=== PATIENT | female | born 1995 | race Caucasian/White ===

== ENCOUNTER 2019-01-02 15:18 | Emergency (ER) | payer OTHER ==
[~2019-01-02] VITALS: Ht 160 cm; Wt 62.6 kg
[2019-01-02] MEDS ORDERED: LACTATED RINGERS 1,000 ML IV STA (16:06)
[2019-01-02 16:18] LABS: BILIRUBIN,URINE NEGATIVE (NEGATIVE); CLARITY,URINE CLEAR; COLOR,URINE YELLOW; GLUCOSE, URINE (UA) NEGATIVE (NEGATIVE); KETONES,URINE 1+ (NEGATIVE); LEUKOCYTE ESTERASE ,URINE 1+ (NEGATIVE); NITRITE,URINE NEGATIVE (NEGATIVE); PH,URINE 7 (5-9); PROTEIN,URINE 1+ (NEGATIVE); UROBILINOGEN,URINE 1 MG/DL (NORMAL)
[2019-01-02 16:23] LABS: BASOPHILS % (AUTO) 0 % (0-10); EOSINOPHILS % (AUTO) 1 % (0-10); HEMATOCRIT 36 % (35-52); HEMOGLOBIN 11.9 G/DL (11.5-16.0); LYMPHOCYTES # (AUTO) 1.4 X 10^3 (1.0-4.0); LYMPHOCYTES % (AUTO) 17 % (12-44); MEAN CORPUSCULAR HEMOGLOBIN 30 PG (25-34); MEAN CORPUSCULAR HGB CONC 33 G/DL (32-36); MEAN CORPUSCULAR VOLUME 91 FL (80-99); MEAN PLATELET VOLUME 10.5 FL (7.4-10.4); MONOCYTES # (AUTO) 1.2 X 10^3 (0.0-1.0); MONOCYTES % (AUTO) 14 % (0-12); NEUTROPHILS # (AUTO) 5.8 X 10^3 (1.8-7.8); NEUTROPHILS % (AUTO) 69 % (42-75); PLATELET COUNT 320 10^3/uL (130-400); RED CELL DISTRIBUTION WIDTH 13.2 % (10.0-14.5); WHITE BLOOD COUNT 8.4 10^3/uL (4.3-11.0)
--- NOTE | 2019-01-02 16:28 | ED GI ---
General Chief Complaint: Abdominal/GI Problems Stated Complaint: 8-9 WEEKS PREG,N/V Nursing Triage Note: IS APX 9WEEKS PREG HAS BEEN SICK WITH NAUSEA AND VOMITING. SAW LAST WEEK. Sepsis Screen: No Definite Risk Source of Information: Patient Exam Limitations: No Limitations (MARIA E ELLIS) History of Present Illness Date Seen by Provider: Jan 02, 2019 Time Seen by Provider: 16:00 Initial Comments Pt presents with vomiting and worry she might be dehydrated. She is 8.5 weeks and been vomiting 1-3 times per day for about 3 weeks. She has been eating mainly saltine crackers and drinking some water. She also states she is constipated for almost a week and has been taking 1 dose a day with no relief. She was given Zofran for the vomiting, but it has not really helped. She reports epigastric pain as well that is a burning/dull in character for which she got an US of the gallbladder this morning. She reports feeling exhausted today after working and feels it might be dehydrated. Timing/Duration: Other (3 weeks) Severity/Quality: Mild, Burning, Dull Location: Epigastric Radiation: No Radiation Activities at Onset: None Associated Symptoms: No Fever/Chills; Headache (MARIA E ELLIS) Timing/Duration: Other (3 weeks) Severity/Quality: Mild, Burning Location: Epigastric Radiation: No Radiation Activities at Onset: None Associated Symptoms: No Fever/Chills; Headache, Nausea/Vomiting; No Shortness of Air, No Weakness (BURT JIMENEZ MD) Allergies and Home Medications Allergies Coded Allergies: No Known Drug Allergies (Unverified , 01/02/19) Patient Home Medication List Home Medication List Reviewed: Yes (BURT JIMENEZ MD) Review of Systems Review of Systems Constitutional: no symptoms reported EENTM: No Symptoms Reported Respiratory: No Symptoms Reported Cardiovascular: No Symptoms Reported Gastrointestinal: Abdominal Pain, Constipated; Denies Diarrhea; Nausea, Vomiting Genitourinary: No Symptoms Reported Musculoskeletal: no symptoms reported Skin: no symptoms reported Psychiatric/Neurological: No Symptoms Reported (MARIA E ELLIS) Gastrointestinal: Nausea, Vomiting Genitourinary: Denies Flank Pain, Denies Pain Musculoskeletal: no symptoms reported (BURT JIMENEZ MD) All Other Systems Reviewed Negative Unless Noted: Yes (BURT JIMENEZ MD) Past Zrmuonj-[id number]-Pqmlok Hx Past Med/Social Hx: Reviewed Nursing Past Med/Soc Hx (BURT JIMENEZ MD) Patient Social History Alcohol Use: Denies Use Recreational Drug Use: No Smoking Status: Never a Smoker 2nd Hand Smoke Exposure: No Recent Foreign Travel: No Contact w/Someone Who Travel: No Recent Infectious Disease Expo: No Recent Hopitalizations: No Physical Abuse: No Sexual Abuse: No Mistreated: No Fear: No (MARIA E ELLIS) Seasonal Allergies Seasonal Allergies: No (MARIA E ELLIS) Past Medical History Surgeries: Yes Tonsillectomy Respiratory: No Cardiac: No Neurological: No : Yes Expected Date of Delivery: Aug 09, 2019 Last Menstrual Period: Oct 27, 2018 Hx : 1 Hx Para: 0 Genitourinary: No Gastrointestinal: No Musculoskeletal: No Endocrine: No HEENT: No Cancer: No Psychosocial: No Integumentary: No (MARIA E ELLIS) Family Medical History Reviewed Nursing Family Hx (BURT JIMENEZ MD) No Pertinent Family Hx (BURT JIMENEZ MD) Physical Exam Vital Signs Vital Signs - First Documented 01/02/19 15:30 Temp 98.4 Pulse 89 Resp 18 B/P (MAP) 111/63 (79) Pulse Ox 98 O2 Delivery Room Air (BURT JIMENEZ MD) Vital Signs Capillary Refill : Less Than 3 Seconds (MARIA E ELLIS) Height/Weight/BMI Height: 5'3.00" Weight: 138lbs. oz. 62.837230wg; BMI Method:Stated General Appearance: WD/WN, no apparent distress HEENT: PERRL/EOMI, normal ENT inspection, TMs normal, pharynx normal Neck: non-tender, full range of motion Respiratory: chest non-tender, lungs clear, normal breath sounds, no respiratory distress, no accessory muscle use Cardiovascular: regular rate, rhythm, no edema, no gallop, no JVD, no murmur Peripheral Pulses: 2+ Dorsalis Pedis (R), 2+ Left Dors-Pedis (L), 2+ Radial Pulses (R), 2+ Radial Pulses (L) Gastrointestinal: normal bowel sounds, soft, no organomegaly, no pulsatile mass Extremities: normal range of motion, no pedal edema, no calf tenderness Neurologic/Psychiatric: no motor/sensory deficits, alert, normal mood/affect, oriented x 3 Skin: normal color, warm/dry (CALEB,MARIA E SANZ STUDJOLENE) General Appearance: WD/WN, no apparent distress Respiratory: lungs clear, normal breath sounds Cardiovascular: regular rate, rhythm, no murmur Gastrointestinal: normal bowel sounds, non tender, soft Neurologic/Psychiatric: alert Skin: normal color, warm/dry (BURT JIMENEZ MD) Progress/Results/Core Measures Results/Orders Lab Results Laboratory Tests Test 01/02/19 15:40 01/02/19 16:10 Range/Units Urine Color YELLOW Urine Clarity CLEAR Urine pH 7 5-9 Urine Specific [place] 1.010 L 1.016-1.022 Urine Protein 1+ H NEGATIVE Urine Glucose (UA) NEGATIVE NEGATIVE Urine Ketones 1+ H NEGATIVE Urine Nitrite NEGATIVE NEGATIVE Urine Bilirubin NEGATIVE NEGATIVE Urine Urobilinogen 1 NORMAL MG/DL Urine Leukocyte Esterase 1+ H NEGATIVE Urine RBC (Auto) NEGATIVE NEGATIVE Urine RBC NONE /HPF Urine WBC 5-10 H /HPF Urine Squamous Epithelial Cells RARE /HPF Urine Crystals NONE /LPF Urine Bacteria MODERATE H /HPF Urine Casts NONE /LPF Urine Mucus MODERATE H /LPF Urine Culture Indicated YES White Blood Count 8.4 4.3-11.0 10^3/uL Red Blood Count 4.00 L 4.35-5.85 10^6/uL Hemoglobin 11.9 11.5-16.0 G/DL Hematocrit 36 35-52 % Mean Corpuscular Volume 91 80-99 FL Mean Corpuscular Hemoglobin 30 25-34 PG Mean Corpuscular Hemoglobin Concent 33 32-36 G/DL Red Cell Distribution Width 13.2 10.0-14.5 % Platelet Count 320 130-400 10^3/uL Mean Platelet Volume 10.5 H 7.4-10.4 FL Neutrophils (%) (Auto) 69 42-75 % Lymphocytes (%) (Auto) 17 12-44 % Monocytes (%) (Auto) 14 H 0-12 % Eosinophils (%) (Auto) 1 0-10 % Basophils (%) (Auto) 0 0-10 % Neutrophils # (Auto) 5.8 1.8-7.8 X 10^3 Lymphocytes # (Auto) 1.4 1.0-4.0 X 10^3 Monocytes # (Auto) 1.2 H 0.0-1.0 X 10^3 Eosinophils # (Auto) 0.0 0.0-0.3 10^3/uL Basophils # (Auto) 0.0 0.0-0.1 10^3/uL Sodium Level 135 135-145 MMOL/L Potassium Level 3.9 3.6-5.0 MMOL/L Chloride Level 103 98-107 MMOL/L Carbon Dioxide Level 25 21-32 MMOL/L Anion Gap 7 5-14 MMOL/L Blood Urea Nitrogen 8 7-18 MG/DL Creatinine 0.67 0.60-1.30 MG/DL Estimat Glomerular Filtration Rate > 60 BUN/Creatinine Ratio 12 Glucose Level 102 70-105 MG/DL Calcium Level 9.1 8.5-10.1 MG/DL Corrected Calcium 8.9 8.5-10.1 MG/DL Total Bilirubin 0.3 0.1-1.0 MG/DL Aspartate Amino Transf (AST/SGOT) 14 5-34 U/L Alanine Aminotransferase (ALT/SGPT) 13 0-55 U/L Alkaline Phosphatase 51 40-136 U/L Total Protein 6.9 6.4-8.2 GM/DL Albumin 4.2 3.2-4.5 GM/DL (BURT JIMENEZ MD) My Orders Orders - BURT JIMENEZ MD Cbc With Automated Diff (01/02/19 16:06) Comprehensive Metabolic Panel (01/02/19 16:06) Ua Culture If Indicated (01/02/19 16:06) Lactated Ringers (Lr 1000 Ml Iv Solution (01/02/19 16:06) Ed Iv/Invasive Line Start (01/02/19 16:06) Urine Culture (01/02/19 15:40) Lactated Ringers (Lr 1000 Ml Iv Solution (01/02/19 17:30) (BURT JIMENEZ MD) Vital Signs/I&O 01/02/19 15:30 Temp 98.4 Pulse 89 Resp 18 B/P (MAP) 111/63 (79) Pulse Ox 98 O2 Delivery Room Air (BURT JIMENEZ MD) Blood Pressure Mean: 79 Progress Progress Note : Time: 16:10 Progress Note Pt seen by me. She reports vomiting for 3 weeks 1-3 times per day. She has taken zofran that does not help and is worried about being dehydrated. I spoke with Dr Jimenez about the patient and he ordered 1L of LR, CBC, CMP, UA. (MARIA E ELLIS) Progress Note : Progress Note I have seen and evaluated the patient and agree with above except as indicated. I have directed the plan of care. Patient is here with intermittent nausea over the last 3 weeks. She is approximately 8 weeks . Seen today by her provider and had gallbladder ultrasound done. I have reviewed this and it does not show any significant findings. We will check labs, UA and initiate 1 L of LR for hydration. Monitor patient. 1720: Doing better with reduced headache. We will go ahead and give another liter of fluid given 1+ ketones in the urine and then discharge. This was discussed with patient and family who agree. Overall she is feeling better though. She does have urinary tract infection and we will treat this outpatient. Discharged home with return precautions. Patient and family verbalized understanding instructions and agreement with plan. (BURT JIMENEZ MD) Departure Impression Primary Impression: Vomiting during Additional Impression: Urinary tract infection Qualified Codes: N30.00 - Acute cystitis without hematuria Disposition: HOME, SELF-CARE Condition: Improved Departure-Patient Inst. Decision time for Depature: 17:29 (BURT JIMENEZ MD) Referrals: NO,LOCAL PHYSICIAN (PCP/Family) Primary Care Physician Patient Instructions: Urinary Tract Infection, Adult (DC), Nausea and Vomiting of (DC), Morning Sickness (DC), Urinary Tract Infections in Adults Add. Discharge Instructions: All discharge instructions reviewed with patient and/or family. Voiced understanding. Continue medications as previously prescribed. Take small sips frequently and you may try different fluids to ensure that he stay hydrated. You may eat light crackers or ptosis and stick with light meals until you get through the nausea and vomiting portion of your . Follow up with your DrBrenda in a few days for recheck. Return for worse pain, fever, vomiting, weakness, breathing problem s or other concerns as needed. Scripts Cephalexin (Cephalexin) 500 Mg Tablet 500 MG PO BID, #10 TAB 0 Refills Prov: BURT JIMENEZ MD 01/02/19 MARIA E ELLIS Jan 02, 2019 16:28 UBRT JIMENEZ MD Jan 02, 2019 17:31
[2019-01-02 16:43] LABS: ALANINE AMINOTRANSFERASE 13 U/L (0-55); ALBUMIN 4.2 GM/DL (3.2-4.5); ALKALINE PHOSPHATASE 51 U/L (40-136); BILIRUBIN,TOTAL 0.3 MG/DL (0.1-1.0); BUN/CREATININE RATIO 12; CALCIUM 9.1 MG/DL (8.5-10.1); CARBON DIOXIDE 25 MMOL/L (21-32); CHLORIDE 103 MMOL/L (98-107); CREATININE SERUM 0.67 MG/DL (0.60-1.30); GFR ESTIMATED > 60; GLUCOSE 102 MG/DL (70-105); POTASSIUM 3.9 MMOL/L (3.6-5.0); SODIUM 135 MMOL/L (135-145); TOTAL PROTEIN 6.9 GM/DL (6.4-8.2)
[2019-01-02 16:44] LABS: BACTERIA,URINE MODERATE /HPF; SQUAMOUS EPITHELIAL CELL,UR RARE /HPF
[2019-01-02] MEDS ORDERED: LACTATED RINGERS 1,000 ML IV SCH (17:30)
[2019-01-02] MEDS ORDERED: CEPH500T PO (17:31)
[2019-01-02 18:04] VITALS: BP 110/66
== END 2019-01-02 18:04 | disposition home or self-care (01) ==
LOC: EDUNIT# 15:18 → ER 15:20
DX: O21.0 Mild hyperemesis gravidarum (principal); O23.41 Unspecified infection of urinary tract in pregnancy, first trimester; Z3A.08 8 weeks gestation of pregnancy; Z90.89 Acquired absence of other organs
CPT/HCPCS: 36415; 80053; 81000; 85025; 87088

== ENCOUNTER → 2019-01-02 | Outpatient (CLI) | payer OTHER ==
[~2019-01-02] MED LIST: CEPH500T PO
--- NOTE | 2019-01-02 09:40 | Diagnostic Imaging Report ---
PROCEDURE: US Gallbladder. TECHNIQUE: Multiple Real-time grayscale images were obtained over the right upper quadrant in various projections. INDICATION: Abdominal pain. COMPARISON: There are no prior studies available for comparison. FINDINGS: There is no evidence for cholelithiasis or acute cholecystitis and the common bile duct is not dilated. The liver does not appear to be enlarged. There is no focal mass involving the liver. Spectral color flow imaging of the portal vein shows that the vein is patent. The right kidney is within normal limits. The pancreas and aorta are partially obscured by bowel gas but show no definite abnormality. IMPRESSION: 1. There is no acute abnormality of the right upper quadrant. 2. If clinical concern regarding an acute abnormality of the gallbladder persists and further evaluation is desired, then a Nuclear Medicine hepatobiliary scan would be recommended. Dictated by: Dictated on workstation # [id number]
== END ==
LOC: RAD 06:58
PROVIDERS: ATTEND Obstetrics & Gynecology
DX: R10.10 Upper abdominal pain, unspecified (principal)
CPT/HCPCS: 76705

== ENCOUNTER 2019-02-21 14:26 | Observation (INO) | payer OTHER ==
[~2019-02-21] VITALS: Ht 162.5 cm; Wt 63.3 kg
--- NOTE | 2019-02-21 14:10 | NUR ---
MARTIR RAMOS presented to unit via AMBULATION from HOME, accompanied by S/O, with c/o HYPER EMESIS. MARTIR RAMOS weighed, gowned, voided, and to bed. EFHM and TOCO applied, VS taken. MARTIR RAMOS oriented to bed controls, call light, TV, heat, and A/C controls. Addendum: 02/21/19 at 1433 by CECILY PITTS RN TOCO AND EMF NOT APPLIED OR APPLICABLE AT THIS GESTATION.
[2019-02-21 14:15] VITALS: BP 122/74
[2019-02-21] MEDS ORDERED: PROMETHAZINE 25 MG (PHENERGAN) SUPP PR NR (14:30)
--- NOTE | 2019-02-21 14:30 | NUR ---
DR CLAUDIO NOTIFIED OF PATIENT ARRIVAL AND C/O. NEW ORDERS RECEIVED.
[2019-02-21] MEDS: D5 LR IV SOLUTION 1,000 ML IV SCH ×5 (14:45→23:00)
[2019-02-21 14:53] LABS: BASOPHILS % (AUTO) 0 % (0-10); EOSINOPHILS % (AUTO) 0 % (0-10); HEMATOCRIT 35 % (35-52); HEMOGLOBIN 11.5 G/DL (11.5-16.0); LYMPHOCYTES # (AUTO) 1.2 X 10^3 (1.0-4.0); LYMPHOCYTES % (AUTO) 16 % (12-44); MEAN CORPUSCULAR HEMOGLOBIN 30 PG (25-34); MEAN CORPUSCULAR HGB CONC 33 G/DL (32-36); MEAN CORPUSCULAR VOLUME 91 FL (80-99); MEAN PLATELET VOLUME 10.3 FL (7.4-10.4); MONOCYTES % (AUTO) 12 % (0-12); NEUTROPHILS # (AUTO) 5.7 X 10^3 (1.8-7.8); NEUTROPHILS % (AUTO) 72 % (42-75); PLATELET COUNT 290 10^3/uL (130-400); RED CELL DISTRIBUTION WIDTH 13.6 % (10.0-14.5); WHITE BLOOD COUNT 7.9 10^3/uL (4.3-11.0)
[2019-02-21 15:11] LABS: ALANINE AMINOTRANSFERASE 25 U/L (0-55); ALKALINE PHOSPHATASE 84 U/L (40-136); BILIRUBIN,TOTAL 0.6 MG/DL (0.1-1.0); BUN/CREATININE RATIO 10; CALCIUM 9.3 MG/DL (8.5-10.1); CARBON DIOXIDE 23 MMOL/L (21-32); CHLORIDE 102 MMOL/L (98-107); GFR ESTIMATED > 60; GLUCOSE 76 MG/DL (70-105); SODIUM 136 MMOL/L (135-145); TOTAL PROTEIN 6.8 GM/DL (6.4-8.2)
--- NOTE | 2019-02-21 16:40 | NUR ---
FIRST BAG IV FLUIDS COMPLETED. ASSISTED UP TO BATHROOM, ATTEMPTING TO VOID FOR ORDERED UA. SPONTANEOUS VOID URINE SENT TO LAB.
[2019-02-21 16:52] LABS: BILIRUBIN,URINE NEGATIVE (NEGATIVE); CLARITY,URINE CLEAR; COLOR,URINE YELLOW; GLUCOSE, URINE (UA) 3+ (NEGATIVE); KETONES,URINE 4+ (NEGATIVE); LEUKOCYTE ESTERASE ,URINE NEGATIVE (NEGATIVE); NITRITE,URINE NEGATIVE (NEGATIVE); PH,URINE 7 (5-9); PROTEIN,URINE 1+ (NEGATIVE)
[2019-02-21 17:05] LABS: BACTERIA,URINE FEW /HPF
--- NOTE | 2019-02-21 17:45 | NUR ---
FHT 160's. left lower quadrant.
[2019-02-21 21:00] VITALS: BP 109/68
--- NOTE | 2019-02-21 21:49 | NUR ---
Doppler 160's and pt states that she was able to eat part of the sandwich and is feeling better.
[2019-02-21 23:09] VITALS: BP 101/55
--- NOTE | 2019-02-21 23:10 | NUR ---
Pt resting in bed, pt states she is feeling better but wishes to stay tonight and see physician in am. VS obtained and IV evaluation complete.
[2019-02-22] MEDS: D5 LR IV SOLUTION 1,000 ML IV SCH (03:09)
[2019-02-22 03:11] VITALS: BP 115/75
--- NOTE | 2019-02-22 06:13 | History & Physical ---
History and Physical Date Seen by Provider: Feb 22, 2019 Time Seen by Provider: 06:13 This patient is a 23-year-old 1 white female currently near 10 weeks gestation admitted for hyperemesis. She tried several anti-medics with no effect. She is at a point where she could not keep anything down. She was feeling dizzy and lightheaded. She was admitted and hydrated and given antiemetics to good effect. She denies rupture membranes or bleeding. Allergies are none Medications are directly to/Zofran/ vitamins Medical social and surgical histories are per the H&P from my office HEENT exam is normal Neck is supple no lymphadenopathy no thyromegaly Abdomen soft nontender nondistended Extreme show clubbing cyanosis. Homans sign. Pelvic exam is deferred Laboratory Tests Test 02/21/19 14:49 02/21/19 16:40 Range/Units White Blood Count 7.9 4.3-11.0 10^3/uL Red Blood Count 3.78 L 4.35-5.85 10^6/uL Hemoglobin 11.5 11.5-16.0 G/DL Hematocrit 35 35-52 % Mean Corpuscular Volume 91 80-99 FL Mean Corpuscular Hemoglobin 30 25-34 PG Mean Corpuscular Hemoglobin Concent 33 32-36 G/DL Red Cell Distribution Width 13.6 10.0-14.5 % Platelet Count 290 130-400 10^3/uL Mean Platelet Volume 10.3 7.4-10.4 FL Neutrophils (%) (Auto) 72 42-75 % Lymphocytes (%) (Auto) 16 12-44 % Monocytes (%) (Auto) 12 0-12 % Eosinophils (%) (Auto) 0 0-10 % Basophils (%) (Auto) 0 0-10 % Neutrophils # (Auto) 5.7 1.8-7.8 X 10^3 Lymphocytes # (Auto) 1.2 1.0-4.0 X 10^3 Monocytes # (Auto) 1.0 0.0-1.0 X 10^3 Eosinophils # (Auto) 0.0 0.0-0.3 10^3/uL Basophils # (Auto) 0.0 0.0-0.1 10^3/uL Sodium Level 136 135-145 MMOL/L Potassium Level 4.0 3.6-5.0 MMOL/L Chloride Level 102 98-107 MMOL/L Carbon Dioxide Level 23 21-32 MMOL/L Anion Gap 11 5-14 MMOL/L Blood Urea Nitrogen 6 L 7-18 MG/DL Creatinine 0.60 0.60-1.30 MG/DL Estimat Glomerular Filtration Rate > 60 BUN/Creatinine Ratio 10 Glucose Level 76 70-105 MG/DL Calcium Level 9.3 8.5-10.1 MG/DL Corrected Calcium 9.3 8.5-10.1 MG/DL Total Bilirubin 0.6 0.1-1.0 MG/DL Aspartate Amino Transf (AST/SGOT) 23 5-34 U/L Alanine Aminotransferase (ALT/SGPT) 25 0-55 U/L Alkaline Phosphatase 84 40-136 U/L Total Protein 6.8 6.4-8.2 GM/DL Albumin 4.0 3.2-4.5 GM/DL Urine Color YELLOW Urine Clarity CLEAR Urine pH 7 5-9 Urine Specific [place] 1.015 L 1.016-1.022 Urine Protein 1+ H NEGATIVE Urine Glucose (UA) 3+ H NEGATIVE Urine Ketones 4+ H NEGATIVE Urine Nitrite NEGATIVE NEGATIVE Urine Bilirubin NEGATIVE NEGATIVE Urine Urobilinogen NORMAL NORMAL MG/DL Urine Leukocyte Esterase NEGATIVE NEGATIVE Urine RBC (Auto) NEGATIVE NEGATIVE Urine RBC NONE /HPF Urine WBC NONE /HPF Urine Squamous Epithelial Cells 5-10 /HPF Urine Crystals NONE /LPF Urine Bacteria FEW H /HPF Urine Casts NONE /LPF Urine Mucus NEGATIVE /LPF Urine Culture Indicated NO Patient is mildly dehydrated and was producing ketones consistent with starvation Assessment and plan 10 week gestation with hyperemesis. Patient is markedly improved now with IV hydration and anti-medics. Plan is for discharge home with follow-up in clinic Hyperemesis gravidarum at 10 weeks gestation Allergies and Home Medications Allergies Coded Allergies: No Known Drug Allergies (Unverified , 01/02/19) Home Medications Cephalexin 500 Mg Tablet, 500 MG PO BID Prescribed by: BURT JIMENEZ on 01/02/19 1734 Patient Home Medication List Home Medication List Reviewed: Yes DELIA CLAUDIO MD Feb 22, 2019 06:13
[2019-02-22] MEDS ORDERED: PROM25TA14 PO (06:15)
--- NOTE | 2019-02-22 06:16 | Discharge Instructions ---
Discharge Instructions Reconcile Patient Problems Problems Reviewed?: Yes Discharge Medications New, Converted or Re-Newed RX: Call to Patients Pharmacy Patient Instructions Return to The Hospital For: As directed Activity & Diet Discharge Diet: No Restrictions Activity as Tolerated: Yes Orders-Post D/C & Referrals Return to clinic as scheduled for OB follow-up Return to clinic for persistent nausea vomiting Please call in rx to patient pharmacy DELIA CLAUDIO MD Feb 22, 2019 06:15
[2019-02-22 08:05] VITALS: BP 111/69
--- NOTE | 2019-02-22 08:10 | NUR ---
OUT OF WS VIA AMBULATION WITH S/O AT SIDE D/C INSTRUCTIONS IN HAND. HOME TO SELF CARE VIA PRIVATE VEHICLE. Addendum: 02/22/19 at 0902 by CECILY PITTS RN OFF FLOOR AT 0815
== END 2019-02-22 08:10 | disposition home or self-care (01) ==
LOC: WSo 14:26 → LDRP 14:27
PROVIDERS: ADMIT Obstetrics & Gynecology; ATTEND Obstetrics & Gynecology
DX: O21.1 Hyperemesis gravidarum with metabolic disturbance (principal); Z88.1 Allergy status to other antibiotic agents
CPT/HCPCS: 36415; 80053; 81000; 85025; 96360; 96361; 99211; G0378

== ENCOUNTER 2019-07-11 20:58 | Observation (INO) | payer OTHER ==
[~2019-07-11] VITALS: Ht 160 cm; Wt 78.3 kg
[~2019-07-11 20:58] MED LIST changes: +PROM25TA14 PO
[2019-07-11 21:05] VITALS: BP 0/0
--- NOTE | 2019-07-11 21:05 | NUR ---
MARTIR RAMOS presented to unit via ambulatory from ED, accompanied by so and mother , with c/o ABDOMINAL TRAUMA. MARTIR RAMOS weighed, gowned, voided, and to bed. EFHM and TOCO applied, VS taken. MARTIR RAMOS oriented to bed controls, call light, TV, heat, and A/C controls. ASSESMSENTS TO FOLLOW.
[2019-07-11 22:00] VITALS: BP 142/87
[2019-07-12 06:00] VITALS: BP 128/84
[2019-07-12 07:30] VITALS: BP 130/84
--- NOTE | 2019-07-12 07:40 | NUR ---
Dr Billingsley here. No new orders rec'd
--- NOTE | 2019-07-12 07:55 | History & Physical ---
History and Physical Date Seen by Provider: Jul 12, 2019 Time Seen by Provider: 07:51 This patient is a 23-year-old 1 white female with a due date of August 09, 2019 presented at 36 and 5/7 weeks gestation last evening after trauma to her abdomen from a large dog jumping on her. During the initial period of observation she began to contract with some regularity and some frequency and intensity. Decision made to continue monitoring for 24 hours due to increased risk for placental abruption secondary to the trauma. Patient's is complicated by her gestational diabetes. A recent GBS culture was negative. Patient denies rupture membranes or bleeding. She is feeling her contractions that are somewhat irregular but happening as frequently as every 1-8 minutes. Patient has demonstrated some cervical change dilating now to 2 cm from exam 1 cm. Allergies are to sulfa which causes hives Medications are vitamins Medical social and surgical histories are per the antepartum record HEENT exam is normal Neck is supple with no lymphadenopathy Abdomen is gravid soft nontender nondistended Extremities show no clubbing cyanosis. There is no Homans sign. Pelvic exam per the admitting nurse showed a cervix 2 cm dilated balance of the exam is record monitor shows contractions every 1-8 minutes lasting over 60 seconds. monitor shows a normal and reassuring heart rate pattern with no D cells Assessment and plan 36 and now 6/7 weeks' gestation with possible labor but also increased risk for placental abruption secondary to trauma to the abdomen. Plan is to continue surveillance for 24 hours past the spermatic event which was approximately 8 p.m. last evening. The patient doesn't make progress and demonstrates labor we will allow her to labor and deliver. labor Allergies and Home Medications Allergies Coded Allergies: Sulfa (Sulfonamide Antibiotics) (Verified Allergy, Unknown, 07/11/19) Home Medications Promethazine HCl 25 Mg Tablet, 25 MG PO Q6H PRN for NAUSEA/VOMITING Prescribed by: DELIA AGUILAR on 02/22/19 0615 Patient Home Medication List Home Medication List Reviewed: Yes DELIA CLAUDIO MD Jul 12, 2019 07:55
[2019-07-12 10:15] VITALS: BP 127/72
--- NOTE | 2019-07-12 15:30 | NUR ---
Dr Billingsley here, updated on pt status. Continue with current plan to D/C at 24hrs.
[2019-07-12 16:00] VITALS: BP 122/73
--- NOTE | 2019-07-12 19:10 | NUR ---
REPORT RECEIVED AND CARES RESUMED BY THIS NURSE.
[2019-07-12 20:20] VITALS: BP 120/68
--- NOTE | 2019-07-12 20:25 | NUR ---
DR CLAUDIO CALLED WITH REPORT OF SVE AND CONDITION. ORDER TO DISCHARGE TO HOME RECEIVED.
--- NOTE | 2019-07-12 20:28 | NUR ---
EFM D/C'D AND PT ALLOWED TO DRESS.
--- NOTE | 2019-07-12 20:35 | NUR ---
DISCHARGE INSTRUCTIONS GIVEN. PT VERBALIZES UNDERSTANDING AND SIGNATURE OBTAINED. QUESTIONS ANSWERED.
--- NOTE | 2019-07-12 20:45 | NUR ---
PT AMB OFF UNIT IN STABLE CONDITION. PT ACCOMPANIED BY MOM.
--- OUTSIDE RECORDS SUMMARY | 2019-07-16 17:36 | XMS REPORT | Continuity of Care Document ---
Author Organization Unknown Address Unknown Phone Unavailable Allergies Active Description Code Type Severity Reaction Onset Reported/Identified Relationship to Patient Clinical Status Yes No Known Drug Allergies [id number] Drug Allergy Unknown N/A 01/02/2019 Yes Sulfa (Sulfonamide Antibiotics) [id number] Drug Allergy Unknown N/A 020 Medications There is no data. 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 01/02/2019 BURT JIMENEZ MD Ot O23.41 UNSP INFCT OF URINARY TRACT IN 01/02/2019 BURT JIMENEZ MD Ot Z3A.08 8 WEEKS GESTATION OF 01/02/2019 BURT JIMENEZ MD Ot Z90.89 ACQUIRED ABSENCE OF OTHER ORGANS 01/04/2019 BURT JIMENEZ MD Ot O21.0 MILD HYPEREMESIS GRAVIDARUM 01/04/2019 BURT JIMENEZ MD Ot O23.41 UNSP INFCT OF URINARY TRACT IN 01/04/2019 BURT JIMENEZ MD Ot Z3A.08 8 WEEKS GESTATION OF 01/04/2019 BURT JIMENEZ MD Ot Z90.89 ACQUIRED ABSENCE OF OTHER ORGANS 01/24/2019 DELIA CLAUDIO MD Ot R10.10 UPPER ABDOMINAL PAIN, UNSPECIFIED 02/22/2019 DELIA CLAUDIO MD Ot O21.1 HYPEREMESIS GRAVIDARUM WITH METABOLIC DI 02/22/2019 DELIA CLAUDIO MD Ot Z88.1 ALLERGY STATUS TO OTHER ANTIBIOTIC AGENT 02/22/2019 DELIA CLAUDIO MD Ot O21.1 HYPEREMESIS GRAVIDARUM WITH METABOLIC DI 02/22/2019 DELIA CLAUDIO MD, Ot Z88.1 ALLERGY STATUS TO OTHER ANTIBIOTIC AGENT 07/11/2019 DELIA CLAUDIO MD Ot R10.10 UPPER ABDOMINAL PAIN, UNSPECIFIED 07/12/2019 DELIA CLAUDIO MD Ot O26.893 OTH RELATED CONDITIONS, THIRD 07/12/2019 DELIA CLAUDIO MD, Ot S39.91XA UNSPECIFIED INJURY OF ABDOMEN, INITIAL E 07/12/2019 DELIA CLAUDIO MD, Ot Z3A.36 36 WEEKS GESTATION OF 07/12/2019 DELIA CLAUDIO MD, Ot Z79.899 OTHER CUSTODIAL (CURRENT) DRUG THERAPY 07/12/2019 DELIA CLAUDIO MD, Ot Z88.2 ALLERGY STATUS TO SULFONAMIDES STATUS 07/13/2019 DELIA CLAUDIO MD, Ot R10.10 UPPER ABDOMINAL PAIN, UNSPECIFIED Procedures There is no data. Results Test Result Range Complete urinalysis with reflex to cultu re - 01/02/19 15:40 Urine color determination YELLOW NRG Urine clarity determination CLEAR NR G Urine pH measurement by test strip 7 5-9 Specific gravity of urine by test strip 1.010 1.016-1.022 Urine protein assay by test strip, semi-quantitative 1+ NEGATIVE Urine glucose detection by automated test strip NE GATIVE NEGATIVE Erythrocytes detection in urine sediment by light micr oscopy NEGATIVE NEGATIVE Urine ketones detection by automated test strip 1+ NEGATIVE Urine nitrite detection by test strip NEGATIVE NEGATIVE Urine total bilirubin detection by test strip NEGA TIVE NEGATIVE Urine urobilinogen measurement by automated test strip (mass/volume) 1 mg/dL NORMAL Urine leukocyte esterase detection by dipstick 1+ NEGATIVE Automated urine sediment erythrocyte cou nt by microscopy (number/high power field) NONE NRG Automated urine sediment leukocyte count by microscopy (number/high power field) [HPF] NRG Bacteria detection in urine sediment by light microsco py MODERATE NRG Squamous epithelial cells detection in u rine sediment by light microscopy RARE NRG Crystals detection in urine sediment by light microsco py NONE NRG Casts detection in urine sediment by light microscopy NONE NRG Mucus detection in urine sediment by light microscopy MODERATE NRG Complete urinalysis with reflex to culture YES NRG Bacterial urine culture - 01/02/19 15:40 Bacterial urine culture NG NRG Complete blood count (CBC) with automate d white blood cell (WBC) differential - 01/02/19 16:10 Blood leukocytes automated count (number/volume) 8.4 10*3/uL 4.3-11.0 Blood erythrocytes automated count (number/volume) 4.00 10*6/uL 4.35-5.85 Venous blood hemoglobin measurement (mass/volume) 11.9 g/dL 11.5-16.0 Blood hematocrit (volume fraction) 36 % 35-52 Automated erythrocyte mean corpuscular volume 91 [ foz_us] 80-99 Automated erythrocyte mean corpuscular h emoglobin (mass per erythrocyte) 30 pg 25-34 Automated erythrocyte mean corpuscular h emoglobin concentration measurement (mass/volume) 33 g/dL 32-36 Automated erythrocyte distribution width ratio 13. 2 % 10.0- 14.5 Automated blood platelet count (count/volume) 320 10*3/uL 130-400 Automated blood platelet mean volume measurement 10.5 [foz_us] 7.4-10.4 Automated blood neutrophils/100 leukocytes 69 % 42-75 Automated blood lymphocytes/100 leukocytes 17 % 12-44 Blood monocytes/100 leukocytes 14 % 0-12 Automated blood eosinophils/100 leukocytes 1 % 0-10 Automated blood basophils/100 leukocytes 0 % 0-10 Blood neutrophils automated count (number/volume) 5.8 10*3 1.8-7.8 Blood lymphocytes automated count (number/volume) 1.4 10*3 1.0-4.0 Blood monocytes automated count (number/volume) 1. 2 10*3 0.0-1.0 Automated eosinophil count 0.0 10*3/uL 0 .0-0.3 Automated blood basophil count (count/volume) 0.0 10*3/uL 0.0-0.1 Comprehensive metabolic panel - 01/02/19 16:10 Serum or plasma sodium measurement (moles/volume) 135 mmol/L 135-145 Serum or plasma potassium measurement (moles/volume) 3.9 mmol/L 3.6-5.0 Serum or plasma chloride measurement (moles/volume) 103 mmol/L 98-107 Carbon dioxide 25 mmol/L 21-32 Serum or plasma anion gap determination (moles/volume) 7 mmol/L 5-14 Serum or plasma urea nitrogen measurement (mass/volume ) 8 mg/dL 7-18 Serum or plasma creatinine measurement (mass/volume) 0.67 mg/dL 0.60-1.30 Serum or plasma urea nitrogen/creatinine mass ratio 12 NRG Serum or plasma creatinine measurement w ith calculation of estimated glomerular filtration rate > NRG Serum or plasma glucose measurement (mass/volume) 102 mg/dL 70-105 Serum or plasma calcium measurement (mass/volume) 9.1 mg/dL 8.5-10.1 Serum or plasma total bilirubin measurement (mass/volu me) 0.3 mg/dL 0.1-1.0 Serum or plasma alkaline phosphatase roman surement (enzymatic activity/volume) 51 U/L 40-136 Serum or plasma aspartate aminotransfera se measurement (enzymatic activity/volume) 14 U/L 5-34 Serum or plasma alanine aminotransferase measurement (enzymatic activity/volume) 13 U/L 0-55 Serum or plasma protein measurement (mass/volume) 6.9 g/dL 6.4-8.2 Serum or plasma albumin measurement (mass/volume) 4.2 g/dL 3.2-4.5 CALCIUM CORRECTED 8.9 mg/dL 8.5-10.1 Complete blood count (CBC) with automate d white blood cell (WBC) differential - 02/21/19 14:49 Blood leukocytes automated count (number/volume) 7.9 10*3/uL 4.3-11.0 Blood erythrocytes automated count (number/volume) 3.78 10*6/uL 4.35-5.85 Venous blood hemoglobin measurement (mass/volume) 11.5 g/dL 11.5-16.0 Blood hematocrit (volume fraction) 35 % 35-52 Automated erythrocyte mean corpuscular volume 91 [ foz_us] 80-99 Automated erythrocyte mean corpuscular h emoglobin (mass per erythrocyte) 30 pg 25-34 Automated erythrocyte mean corpuscular h emoglobin concentration measurement (mass/volume) 33 g/dL 32-36 Automated erythrocyte distribution width ratio 13. 6 % 10.0- 14.5 Automated blood platelet count (count/volume) 290 10*3/uL 130-400 Automated blood platelet mean volume measurement 10.3 [foz_us] 7.4-10.4 Automated blood neutrophils/100 leukocytes 72 % 42-75 Automated blood lymphocytes/100 leukocytes 16 % 12-44 Blood monocytes/100 leukocytes 12 % 0-12 Automated blood eosinophils/100 leukocytes 0 % 0-10 Automated blood basophils/100 leukocytes 0 % 0-10 Blood neutrophils automated count (number/volume) 5.7 10*3 1.8-7.8 Blood lymphocytes automated count (number/volume) 1.2 10*3 1.0-4.0 Blood monocytes automated count (number/volume) 1. 0 10*3 0.0-1.0 Automated eosinophil count 0.0 10*3/uL 0 .0-0.3 Automated blood basophil count (count/volume) 0.0 10*3/uL 0.0-0.1 Comprehensive metabolic panel - 02/21/19 14:49 Serum or plasma sodium measurement (moles/volume) 136 mmol/L 135-145 Serum or plasma potassium measurement (moles/volume) 4.0 mmol/L 3.6-5.0 Serum or plasma chloride measurement (moles/volume) 102 mmol/L 98-107 Carbon dioxide 23 mmol/L 21-32 Serum or plasma anion gap determination (moles/volume) 11 mmol/L 5-14 Serum or plasma urea nitrogen measurement (mass/volume ) 6 mg/dL 7-18 Serum or plasma creatinine measurement (mass/volume) 0.60 mg/dL 0.60-1.30 Serum or plasma urea nitrogen/creatinine mass ratio 10 NRG Serum or plasma creatinine measurement w ith calculation of estimated glomerular filtration rate > NRG Serum or plasma glucose measurement (mass/volume) 76 mg/dL 70-105 Serum or plasma calcium measurement (mass/volume) 9.3 mg/dL 8.5-10.1 Serum or plasma total bilirubin measurement (mass/volu me) 0.6 mg/dL 0.1-1.0 Serum or plasma alkaline phosphatase roman surement (enzymatic activity/volume) 84 U/L 40-136 Serum or plasma aspartate aminotransfera se measurement (enzymatic activity/volume) 23 U/L 5-34 Serum or plasma alanine aminotransferase measurement (enzymatic activity/volume) 25 U/L 0-55 Serum or plasma protein measurement (mass/volume) 6.8 g/dL 6.4-8.2 Serum or plasma albumin measurement (mass/volume) 4.0 g/dL 3.2-4.5 CALCIUM CORRECTED 9.3 mg/dL 8.5-10.1 Complete urinalysis with reflex to cultu re - 02/21/19 16:40 Urine color determination YELLOW NRG Urine clarity determination CLEAR NR G Urine pH measurement by test strip 7 5-9 Specific gravity of urine by test strip 1.015 1.016-1.022 Urine protein assay by test strip, semi-quantitative 1+ NEGATIVE Urine glucose detection by automated test strip 3+ NEGATIVE Erythrocytes detection in urine sediment by light micr oscopy NEGATIVE NEGATIVE Urine ketones detection by automated test strip 4+ NEGATIVE Urine nitrite detection by test strip NEGATIVE NEGATIVE Urine total bilirubin detection by test strip NEGA TIVE NEGATIVE Urine urobilinogen measurement by automated test strip (mass/volume) NORMAL NORMAL Urine leukocyte esterase detection by dipstick NEG ATIVE NEGATIVE Automated urine sediment erythrocyte cou nt by microscopy (number/high power field) NONE NRG Automated urine sediment leukocyte count by microscopy (number/high power field) NONE NRG Bacteria detection in urine sediment by light microsco py FEW NRG Squamous epithelial cells detection in u rine sediment by light microscopy 5-10 NRG Crystals detection in urine sediment by light microsco py NONE NRG Casts detection in urine sediment by light microscopy NONE NRG Mucus detection in urine sediment by light microscopy NEGATIVE NRG Complete urinalysis with reflex to culture NO NRG Encounters ACCT No. Visit Date/Time Discharge Status Pt. Type Provider Facility Loc./Unit Complaint [id number] 03/10/2019 15:35:00 03/10/2019 23:59:5 9 CLS Outpatient [facility] [id number] 07/12/2019 07:55:00 20:45:00 DIS Inpatient DELIA CLAUDIO MD Via [facility] LDRP STOMACH PAIN [id number] 02/21/2019 14:10:00 08:15:00 DIS Inpatient DELIA CLAUDIO MD Via [facility] LDRP HYPER EMESIS [id number] 01/02/2019 06:58:00 23:59:59 CLS Outpatient DELIA CLAUDIO MD Via [facility] RAD UPPER ABD PAIN [id number] 01/02/2019 15:20:00 18:04:00 DIS Emergency BURT JIMENEZ MD Via [facility] ER 8-9 WEEKS PREG, N/V
== END 2019-07-12 20:45 | disposition home or self-care (01) ==
LOC: WSo 20:58 → LDRP 21:00 → WSo 07-12 07:55
PROVIDERS: ADMIT Obstetrics & Gynecology; ATTEND Obstetrics & Gynecology
DX: O26.893 Other specified pregnancy related conditions, third trimester (principal); S39.91XA Unspecified injury of abdomen, initial encounter; Z3A.36 36 weeks gestation of pregnancy; Z88.2 Allergy status to sulfonamides; Z79.899 Other long term (current) drug therapy

== ENCOUNTER → 2019-07-19 | Outpatient (CLI) | payer OTHER | LOC: LABNPT 09:14 | PROVIDERS: ATTEND Obstetrics & Gynecology | DX: O28.8 Other abnormal findings on antenatal screening of mother (principal); Z3A.00 Weeks of gestation of pregnancy not specified | CPT/HCPCS: 82570; 84156 ==

== ENCOUNTER → 2019-07-22 | Outpatient (CLI) | payer OTHER | LOC: LABNPT 16:01 | PROVIDERS: ATTEND Obstetrics & Gynecology | DX: O28.8 Other abnormal findings on antenatal screening of mother (principal) | CPT/HCPCS: 82570; 84156 ==

== ENCOUNTER 2019-07-25 09:58 | Inpatient (IN) | payer OTHER ==
[2019-07-25] VITALS (71 sets, daily range): BP systolic 92–144; BP diastolic 50–89
[~2019-07-25] VITALS: Ht 160 cm; Wt 74.4 kg
--- NOTE | 2019-07-25 09:45 | NUR ---
Arrived to unit ambulates self for IOL. wt obtained. to room 319. gowned and urine sample obtained. To bed and oriented to room, call light and surroundings. bed controls explained. plan of care reviewed with pt and s.o.
[2019-07-25] MEDS ORDERED: D5 LR IV SOLUTION 1,000 ML IV ONE (10:54)
[2019-07-25] MEDS ORDERED: LIDOCAINE/EPI 1%-1:200,000 (XYLOCAINE) 30 ML VIAL INJ ONE (11:00)
[2019-07-25 11:02] LABS: BASOPHILS % (AUTO) 0 % (0-10); EOSINOPHILS # (AUTO) 0.1 10^3/uL (0.0-0.3); EOSINOPHILS % (AUTO) 1 % (0-10); HEMATOCRIT 33 % (35-52); HEMOGLOBIN 10.7 G/DL (11.5-16.0); LYMPHOCYTES # (AUTO) 1.2 X 10^3 (1.0-4.0); LYMPHOCYTES % (AUTO) 22 % (12-44); MEAN CORPUSCULAR HEMOGLOBIN 29 PG (25-34); MEAN CORPUSCULAR HGB CONC 33 G/DL (32-36); MEAN CORPUSCULAR VOLUME 89 FL (80-99); MONOCYTES % (AUTO) 18 % (0-12); NEUTROPHILS # (AUTO) 3.3 X 10^3 (1.8-7.8); NEUTROPHILS % (AUTO) 60 % (42-75); PLATELET COUNT 246 10^3/uL (130-400); RED CELL DISTRIBUTION WIDTH 13.6 % (10.0-14.5); WHITE BLOOD COUNT 5.5 10^3/uL (4.3-11.0)
[2019-07-25] MEDS: D5 LR IV SOLUTION 1,000 ML IV SCH ×2 (11:05→17:07)
[2019-07-25] MEDS ORDERED: D5 LR IV SOLUTION 1,000 ML IV SCH (11:44)
[2019-07-25] MEDS ORDERED: OXYTOCIN PRE-MIX DRIP 500 ML IV SCH (11:44)
--- NOTE | 2019-07-25 11:50 | History & Physical ---
History and Physical Date Seen by Provider: Jul 25, 2019 Time Seen by Provider: 11:47 This patient is a 23-year-old 1 white female with a due date of August 09, 2019 putting her at 37-6/7 weeks' gestation. She was seen in clinic on this date found to be 5 cm dilated and with an equivocal nitrazine. Her is complicated by gestational diabetes and oligohydramnios. Her GBS culture done after 35 weeks gestation was negative. Allergies are to sulfa which causes hives Medications are vitamins Medical social and surgical histories are per the antepartum record HEENT exam is normal Neck is supple no lymphadenopathy no thyromegaly Abdomen is gravid soft nontender nondistended Extremities show no clubbing cyanosis. There is no Homans sign. Pelvic exam shows a cervix now 5+ and Ms. dilated 70 percent effaced and very soft and very anterior very stretchy. No membranes or palpable over the vertex but amniotomy is performed with release of a small amount of clear fluid. The presenting part is at about 0 to -1 station. Laboratory Tests Test 07/25/19 10:50 07/25/19 11:24 Range/Units White Blood Count 5.5 4.3-11.0 10^3/uL Red Blood Count 3.70 L 4.35-5.85 10^6/uL Hemoglobin 10.7 L 11.5-16.0 G/DL Hematocrit 33 L 35-52 % Mean Corpuscular Volume 89 80-99 FL Mean Corpuscular Hemoglobin 29 25-34 PG Mean Corpuscular Hemoglobin Concent 33 32-36 G/DL Red Cell Distribution Width 13.6 10.0-14.5 % Platelet Count 246 130-400 10^3/uL Mean Platelet Volume 12.0 H 7.4-10.4 FL Neutrophils (%) (Auto) 60 42-75 % Lymphocytes (%) (Auto) 22 12-44 % Monocytes (%) (Auto) 18 H 0-12 % Eosinophils (%) (Auto) 1 0-10 % Basophils (%) (Auto) 0 0-10 % Neutrophils # (Auto) 3.3 1.8-7.8 X 10^3 Lymphocytes # (Auto) 1.2 1.0-4.0 X 10^3 Monocytes # (Auto) 1.0 0.0-1.0 X 10^3 Eosinophils # (Auto) 0.1 0.0-0.3 10^3/uL Basophils # (Auto) 0.0 0.0-0.1 10^3/uL Glucometer 90 70-110 MG/DL Assessment and plan term at 37+ weeks gestation with gestational diabetes and oligohydramnios. Patient appears to be in labor with cervix dilated 5 cm. We have performed amniotomy and would add Pitocin if necessary. For progression of labor. Anticipate a vaginal delivery. 37+ week gestation with gestational diabetes/oligohydramnios/early labor Allergies and Home Medications Allergies Coded Allergies: Sulfa (Sulfonamide Antibiotics) (Verified Allergy, Unknown, 07/11/19) Home Medications Promethazine HCl 25 Mg Tablet, 25 MG PO Q6H PRN for NAUSEA/VOMITING Prescribed by: DELIA AGUILAR on 02/22/19 0615 Patient Home Medication List Home Medication List Reviewed: Yes DELIA CLAUDIO MD Jul 25, 2019 11:50
[2019-07-25] MEDS ORDERED: SUFENTA 0.6MCG/ML BUPIVA 0.125 100 ML ONE (12:11)
--- NOTE | 2019-07-25 12:15 | NUR ---
Anesthesia called and notified of need for epidural.
--- OUTSIDE RECORDS SUMMARY | 2019-07-25 12:23 | XMS REPORT | Continuity of Care Document ---
Author Organization Unknown Address Unknown Phone Unavailable Allergies Active Description Code Type Severity Reaction Onset Reported/Identified Relationship to Patient Clinical Status Yes No Known Drug Allergies [id number] Drug Allergy Unknown N/A 01/02/2019 Yes Sulfa (Sulfonamide Antibiotics) [id number] 0491 Drug Allergy Unknown N/A 020 Medications [...] 07/12/2019 DELIA CLAUDIO MD, Ot Z79.899 OTHER INTERMEDIATE (CURRENT) DRUG THERAPY 07/12/2019 DELIA CLAUDIO MD, Ot Z88.2 ALLERGY STATUS TO SULFONAMIDES STATUS 07/13/2019 DELIA CLAUDIO MD, Ot R10.10 UPPER ABDOMINAL PAIN, UNSPECIFIED 07/23/2019 DELIA CLAUDIO MD Ot O28.8 OTHER ABNORMAL FINDINGS ON SCR 07/23/2019 DELIA CLAUDIO MD, Ot Z3A.00 WEEKS OF GESTATION OF NOT SPEC 07/23/2019 DELIA CLAUDIO MD, Ot O28.8 OTHER ABNORMAL FINDINGS ON SCR Procedures There is no data. Results Test [...] urinalysis with reflex to culture NO NRG Urine protein/creatinine mass ratio - 08:44 Urine protein measurement (mass/volume) 8 mg/dL 6-12 Urine creatinine measurement (mass/volume) 96 mg/d L 30-125 Urine protein/creatinine mass ratio 0.08 NRG Urine protein/creatinine mass ratio - 16:02 Urine protein measurement (mass/volume) 10 mg/dL 6-12 Urine creatinine measurement (mass/volume) 100 mg/ dL 30-125 Urine protein/creatinine mass ratio 0.10 NRG Complete blood count (CBC) with automate d white blood cell (WBC) differential - 07/25/19 10:50 Blood leukocytes automated count (number/volume) 5.5 10*3/uL 4.3-11.0 Blood erythrocytes automated count (number/volume) 3.70 10*6/uL 4.35-5.85 Venous blood hemoglobin measurement (mass/volume) 10.7 g/dL 11.5-16.0 Blood hematocrit (volume fraction) 33 % 35-52 Automated erythrocyte mean corpuscular volume 89 [ foz_us] 80-99 Automated erythrocyte mean corpuscular h emoglobin (mass per erythrocyte) 29 pg 25-34 Automated erythrocyte mean corpuscular h emoglobin concentration measurement (mass/volume) 33 g/dL 32-36 Automated erythrocyte distribution width ratio 13. 6 % 10.0- 14.5 Automated blood platelet count (count/volume) 246 10*3/uL 130-400 Automated blood platelet mean volume measurement 12.0 [foz_us] 7.4-10.4 Automated blood neutrophils/100 leukocytes 60 % 42-75 Automated blood lymphocytes/100 leukocytes 22 % 12-44 Blood monocytes/100 leukocytes 18 % 0-12 Automated blood eosinophils/100 leukocytes 1 % 0-10 Automated blood basophils/100 leukocytes 0 % 0-10 Blood neutrophils automated count (number/volume) 3.3 10*3 1.8-7.8 Blood lymphocytes automated count (number/volume) 1.2 10*3 1.0-4.0 Blood monocytes automated count (number/volume) 1. 0 10*3 0.0-1.0 Automated eosinophil count 0.1 10*3/uL 0 .0-0.3 Automated blood basophil count (count/volume) 0.0 10*3/uL 0.0-0.1 Blood type T Indirect antibody screen pa rebecca - 07/25/19 10:50 WRISTBAND NUMBER [id number] NRG ABO+Rh group AP NRG Blood group antibody screen NEGATIVE NR G Capillary blood glucose measurement by g lucometer (mass/volume) - 07/25/19 11:24 Capillary blood glucose measurement by glucometer (mas s/volume) 90 mg/dL 70-110 Encounters ACCT No. Visit Date/Time Discharge Status Pt. Type Provider Facility Loc./Unit Complaint [id number] 03/10/2019 15:35:00 03/10/2019 23:59:5 9 CLS Outpatient [facility] [id number] 07/19/2019 09:14:00 020 23:59:59 CLS Outpatient SHANON REDDY, DELIA Cade [facility] LABNPT [id number] 07/12/2019 07:55:00 20:45:00 DIS Inpatient DELIA CLAUDIO MD [facility] LDRP STOMACH PAIN [id number] 02/21/2019 14:10:00 08:15:00 DIS Inpatient DELIA CLAUDIO MD [facility] LDRP HYPER EMESIS [id number] 01/02/2019 06:58:00 23:59:59 CLS Outpatient DELIA CLAUDIO MD [facility] RAD UPPER ABD PAIN [id number] 01/02/2019 15:20:00 18:04:00 DIS Emergency BARBARA REDDY, BURT Arellano [facility] ER 8-9 WEEKS PREG, N/V [id number] 07/25/2019 11:03:00 Document Registration [id number] 07/22/2019 16:01:[address] [facility]
[2019-07-25] MEDS ORDERED: fentaNYL INJECTION 100 MCG/2 ML AMP ONE (13:41)
[2019-07-25] MEDS ORDERED: LACTATED RINGERS 1,000 ML IV ONE (18:38)
[2019-07-25] MEDS: EPIDURAL (fentaNYL 2 MCG/ML BUPIVA 0.125%)100 ML BAG EPI SCH ×2 (18:43→21:22)
[2019-07-25] MEDS ORDERED: NALOXONE 0.4 MG/ML 1 ML (NARCAN) VIAL IV PRN (18:45)
[2019-07-25] MEDS ORDERED: CATHETER FLUSH 10 ML SYR IV PRN (18:45)
--- NOTE | 2019-07-25 21:16 | NUR ---
Called Valentino Parr CRNA OC to verify new epidural bag/doseage, reviewed, no new orders rc'd, will use same settings.
[2019-07-25] MEDS ORDERED: LIDOCAINE/EPI 2% 1:200,00 (XYLOCAINE) 10 ML VIAL ONE ×2 (22:21→22:22)
[2019-07-26] VITALS (11 sets, daily range): BP systolic 107–129; BP diastolic 56–80
[2019-07-26] MEDS: D5 LR IV SOLUTION 1,000 ML IV SCH (00:29)
[2019-07-26] MEDS: CATHETER FLUSH 10 ML SYR IV SCH ×3 (00:30→03:35)
[2019-07-26] MEDS ORDERED: OXYTOCIN PRE-MIX DRIP 500 ML IV SCH (00:44)
[2019-07-26] MEDS ORDERED: BENZOCAINE/MENTHOL (DERMOPLAST) 60 ML CAN TP PRN (00:45)
[2019-07-26] MEDS ORDERED: ONDANSETRON 4 MG/2 ML (SDV) Z0FRAN IVP PRN (00:45)
[2019-07-26] MEDS ORDERED: TETANUS,DIPTH,PERTUSS P/F (BOOSTRIX) 0.5 ML VIAL IM ONE (00:45)
[2019-07-26] MEDS ORDERED: oxyCODONE/APAP 5/325MG (PERCOCET 5) TABLET PO PRN (00:45)
--- NOTE | 2019-07-26 02:07 | OPERATIVE REPORT ---
DATE OF SERVICE: 07/25/2019 DELIVERY NOTE The patient delivered by term spontaneous vaginal delivery at 37+ weeks gestation. A viable male infant with Apgars of 9 and 9 at 1 and 5 minutes respectively, weight of 7 pounds 5 ounces, time of 2337 and a cord blood pH of 7.22. The was delivered over essentially a second-degree perineal and vaginal laceration under epidural analgesia augmented with local in the perineum. The infant was bulb suctioned on delivery of the head. A very mild shoulder dystocia was encountered that was relieved by Danuta maneuver in less than 30 seconds. The infant was bulb suctioned on delivery of the head and again on completion of delivery. When the umbilical cord was pulseless, it was doubly clamped, father cut the cord, the baby was passed to mom's abdomen. The placenta delivered fairly promptly spontaneously Gonzalez. It was normal with a 3-vessel cord. The cervix, vagina, rectum, and perineum were examined and found intact, except for the second-degree laceration that extended about a third of the way up the posterior vaginal wall. The sphincter muscle was intact. A repair was affected using a single suture of 3-0 Vicryl Rapide in the usual manner to good reapproximation and good hemostasis. The patient tolerated the delivery and the repair well. The blood loss was around 250 to 300 mL. The sponge and needle counts were correct on completion of delivery and the repair. The patient remained in the LDR for recovery. The baby remained with the mom. 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
[2019-07-26] MEDS ORDERED: WITCH HAZEL(TUCKS) 40 EA JAR ONE (03:26)
[2019-07-26] MEDS ORDERED: DIBUCAINE (NUPERCAINAL) 1% OINT 30 GM ONE (03:26)
[2019-07-26] MEDS: KETOROLAC 30 MG/ML VIAL IVP SCH ×4 (03:35→20:42)
[2019-07-26] MEDS ORDERED: WITCH HAZEL(TUCKS) 40 EA JAR TOP PRN (05:15)
[2019-07-26] MEDS ORDERED: DIBUCAINE (NUPERCAINAL) 1% OINT 30 GM TOP PRN (05:15)
[2019-07-26] MEDS: IBUPROFEN 800 MG (MOTRIN) TAB PO SCH ×3 (06:07→21:30)
--- NOTE | 2019-07-26 08:02 | Progress Note ---
Standard Progress Note Progress Notes/Assess & Plan Date Seen by a Provider: Jul 26, 2019 Time Seen by a Provider: 08:01 Progress/Assessment & Plan This patient is without complaint. She is ambulating, voiding, tolerating oral intake well has good pain control. Patient denies chest pain, denies shortness of breath, denies nausea vomiting, and denies headache. Vital Signs Date Time Temp Pulse Resp B/P (MAP) Pulse Ox O2 Delivery O2 Flow Rate FiO2 07/26/19 05:50 36.2 101 18 129/74 (92) 97 Room Air 07/26/19 02:00 36.5 99 18 125/62 (83) Room Air 07/26/19 01:30 36.9 100 18 122/71 (88) Room Air 07/26/19 01:00 36.1 117 18 115/80 (92) Room Air 07/26/19 00:45 113 18 114/70 (85) Room Air 07/26/19 00:30 36.5 148 18 116/65 (82) Room Air 07/26/19 00:15 133 18 122/65 (84) Room Air 07/26/19 00:00 126 18 129/65 (86) Room Air 07/25/19 23:45 37.0 148 18 132/68 (89) Room Air 07/25/19 23:30 155 18 131/76 (94) Room Air 07/25/19 23:15 162 18 136/88 (104) Room Air 07/25/19 23:00 157 18 141/73 (95) Room Air 07/25/19 22:45 139 18 135/79 (97) Room Air 07/25/19 22:30 36.5 126 18 124/70 (88) Room Air 07/25/19 22:15 108 18 117/65 (82) Room Air 07/25/19 22:00 107 18 122/68 (86) Room Air 07/25/19 21:45 37.1 123 18 108/73 (85) Room Air 07/25/19 21:30 97 18 118/73 (88) Room Air 07/25/19 21:15 96 18 118/69 (85) Room Air 07/25/19 21:00 36.9 107 18 117/71 (86) 99 Room Air 07/25/19 20:45 112 18 117/66 (83) Room Air 07/25/19 20:30 117 18 118/66 (83) Room Air 07/25/19 20:25 120 18 128/60 (82) Room Air 07/25/19 20:20 129 18 122/64 (83) Room Air 07/25/19 20:15 116 18 119/61 (80) Room Air 07/25/19 20:10 120 18 113/70 (84) Room Air 07/25/19 20:05 108 18 116/65 (82) Room Air 07/25/19 20:00 108 18 118/64 (82) Room Air 07/25/19 19:55 118 18 109/68 (82) Room Air 07/25/19 19:50 116 18 126/70 (88) Room Air 07/25/19 19:45 110 18 140/76 (97) Room Air 07/25/19 19:40 36.6 113 18 116/72 (87) 99 Room Air 07/25/19 19:30 106 18 113/68 (83) Room Air 07/25/19 19:15 102 18 107/60 (76) Room Air 07/25/19 18:55 107 18 105/70 (82) Room Air 07/25/19 18:40 106 18 112/60 (77) Room Air 07/25/19 18:25 96 18 98/59 (72) Room Air 07/25/19 18:10 100 18 107/59 (75) 99 Room Air 07/25/19 17:55 93 18 120/73 (89) 99 Room Air 07/25/19 17:40 36.4 102 18 133/83 (100) 100 Room Air 07/25/19 17:25 104 18 121/78 (92) 99 Room Air 07/25/19 17:10 90 18 120/78 (92) 100 Room Air 07/25/19 16:55 85 18 121/69 (86) 100 Room Air 07/25/19 16:40 80 18 115/63 (80) 100 Room Air 07/25/19 16:25 88 18 117/64 (81) 100 Room Air 07/25/19 16:10 75 18 112/66 (81) 100 Room Air 07/25/19 15:55 72 18 113/58 (76) 98 Room Air 07/25/19 15:40 36.0 85 18 123/75 (91) 99 Room Air 07/25/19 15:25 84 18 114/68 (83) 99 Room Air 07/25/19 15:10 95 18 110/71 (84) 100 Room Air 07/25/19 14:55 85 18 110/68 (82) 99 Room Air 07/25/19 14:40 75 18 118/68 (85) 99 Room Air 07/25/19 14:25 36.0 84 18 118/73 (88) 98 Room Air 07/25/19 14:18 82 18 115/70 (85) 96 Room Air 07/25/19 14:13 84 18 122/74 (90) 99 Room Air 07/25/19 14:10 82 18 128/77 (94) 100 Room Air 07/25/19 14:08 86 18 121/71 (88) 100 Room Air 07/25/19 14:05 76 18 123/75 (91) 99 Room Air 07/25/19 14:02 35.9 67 18 104/56 (72) 99 Room Air 07/25/19 13:59 83 18 92/50 (64) 99 Room Air 07/25/19 13:56 86 18 104/56 (72) 98 Room Air 07/25/19 13:53 85 18 100/57 (71) 98 Room Air 07/25/19 13:50 84 18 115/57 (76) 99 Room Air 07/25/19 13:44 98 18 119/62 (81) 99 Room Air 07/25/19 13:39 97 18 137/75 (95) 100 Room Air 07/25/19 13:34 97 18 132/81 (98) 97 Room Air 07/25/19 13:29 85 18 129/80 (96) 98 Room Air 07/25/19 13:24 88 18 140/84 (102) 97 Room Air 07/25/19 13:19 99 18 141/85 (103) 96 Room Air 07/25/19 13:14 97 18 136/79 (98) 98 Room Air 07/25/19 13:09 95 18 119/69 (86) 98 Room Air 07/25/19 13:03 98 18 134/84 (101) 99 Room Air 07/25/19 13:00 97 18 135/89 (104) 100 Room Air 07/25/19 12:55 105 18 144/83 (103) 100 Room Air 07/25/19 12:40 74 18 131/77 (95) Room Air 07/25/19 12:10 80 18 126/80 (95) Room Air 07/25/19 11:40 36.4 90 18 122/77 (92) Room Air 07/25/19 10:40 84 18 119/77 (91) Room Air 07/25/19 10:10 36.3 92 18 98 Room Air I & O 07/26/19 07:00 Intake Total 3000 ml Output Total 0 ml Balance 3000 ml Vital signs are stable. Patient is afebrile Fundus is firm below the umbilicus and nontender. Extremities show no clubbing or cyanosis. There is no Homans sign. Assessment and plan day number 1 status post term spontaneous vaginal delivery. Patient is doing well and will have routine convalescence care DELIA CLAUDIO MD Jul 26, 2019 08:02
[2019-07-26] MEDS ORDERED: IBUP-1780 PO (08:05)
[2019-07-26] MEDS ORDERED: DCS100C PO (08:05)
[2019-07-26] MEDS ORDERED: OXYC1TAB87 PO (08:05)
--- NOTE | 2019-07-26 08:06 | Discharge Inst-Surgical ---
Discharge Inst-Surgical Depart Medication/Instructions New, Converted or Re-Newed RX: RX on Chart Consults/Follow Up Patient Instructions: As directed Orders & Referrals Follow Up Appt: Call to make follow up appt. for patient in 4 weeks. Activity Per routine post vaginal delivery instructions. Please call in RX to patient pharmacy. Diet as tolerated Patient may shower or tub bathe as desired. Activity Activity as Tolerated: No Diet Discharge Diet: No Restrictions DELIA CLAUDIO MD Jul 26, 2019 08:06
--- NOTE | 2019-07-26 08:09 | Anesthesia-Regional Post-Op ---
Regional Patient Condition Mental Status: Alert, Oriented x3 Circulation: Same as Pre-Op Headache: Absent Sensation: Full Recovery Motor Block: Absent Post Op Complications Complications None Follow Up Care/Instructions Patient Instructions None needed. Anesthesia/Patient Condition Patient is doing well, no complaints, stable vital signs, no apparent adverse anesthesia problems. No complications reported per nursing. KENDRA GU CRNA Jul 26, 2019 08:09
--- NOTE | 2019-07-26 08:43 | NUR ---
initial shift assessment completed, see interventions for further. POC reviewed, states understanding.
[2019-07-26] MEDS: DOCUSATE SODIUM 100 MG (COLACE) CAP PO SCH ×2 (08:45→21:30)
--- NOTE | 2019-07-26 10:15 | Anesthesia-Regional Post-Op ---
Regional Patient Condition Mental Status: Alert, Oriented x3 Circulation: Same as Pre-Op Headache: Absent Sensation: Full Recovery Motor Block: Absent Post Op Complications Complications None Follow Up Care/Instructions Patient Instructions None needed. Anesthesia/Patient Condition Patient is doing well, no complaints, stable vital signs, no apparent adverse anesthesia problems. No complications reported per nursing. MAUGI SAUER CRNA Jul 26, 2019 10:15
[2019-07-27 02:32] VITALS: BP 117/72
[2019-07-27] MEDS: IBUPROFEN 800 MG (MOTRIN) TAB PO SCH ×2 (02:32→09:00)
[2019-07-27 09:00] VITALS: BP 116/71
[2019-07-27] MEDS: DOCUSATE SODIUM 100 MG (COLACE) CAP PO SCH (09:00)
--- NOTE | 2019-07-27 09:00 | NUR ---
initial shift assessment completed, see interventions for further. POC reviewed, states understanding.
--- NOTE | 2019-07-27 09:24 | NUR ---
here to see pt.
--- NOTE | 2019-07-27 09:46 | Progress Note ---
Standard Progress Note Progress Notes/Assess & Plan Date Seen by a Provider: Jul 27, 2019 Time Seen by a Provider: 09:45 Progress/Assessment & Plan This patient is without complaint. She is ambulating, voiding, tolerating oral intake well has good pain control. Patient denies chest pain, denies shortness of breath, denies nausea vomiting, and denies headache. Vital Signs Date Time Temp Pulse Resp B/P (MAP) Pulse Ox O2 Delivery O2 Flow Rate FiO2 07/26/19 05:50 36.2 101 18 129/74 (92) 97 Room Air 07/26/19 02:00 36.5 99 18 125/62 (83) Room Air 07/26/19 01:30 36.9 100 18 122/71 (88) Room Air 07/26/19 01:00 36.1 117 18 115/80 (92) Room Air 07/26/19 00:45 113 18 114/70 (85) Room Air 07/26/19 00:30 36.5 148 18 116/65 (82) Room Air 07/26/19 00:15 133 18 122/65 (84) Room Air 07/26/19 00:00 126 18 129/65 (86) Room Air 07/25/19 23:45 37.0 148 18 132/68 (89) Room Air 07/25/19 23:30 155 18 131/76 (94) Room Air 07/25/19 23:15 162 18 136/88 (104) Room Air 07/25/19 23:00 157 18 141/73 (95) Room Air 07/25/19 22:45 139 18 135/79 (97) Room Air 07/25/19 22:30 36.5 126 18 124/70 (88) Room Air 07/25/19 22:15 108 18 117/65 (82) Room Air 07/25/19 22:00 107 18 122/68 (86) Room Air 07/25/19 21:45 37.1 123 18 108/73 (85) Room Air 07/25/19 21:30 97 18 118/73 (88) Room Air 07/25/19 21:15 96 18 118/69 (85) Room Air 07/25/19 21:00 36.9 107 18 117/71 (86) 99 Room Air 07/25/19 20:45 112 18 117/66 (83) Room Air 07/25/19 20:30 117 18 118/66 (83) Room Air 07/25/19 20:25 120 18 128/60 (82) Room Air 07/25/19 20:20 129 18 122/64 (83) Room Air 07/25/19 20:15 116 18 119/61 (80) Room Air 07/25/19 20:10 120 18 113/70 (84) Room Air 07/25/19 20:05 108 18 116/65 (82) Room Air 07/25/19 20:00 108 18 118/64 (82) Room Air 07/25/19 19:55 118 18 109/68 (82) Room Air 07/25/19 19:50 116 18 126/70 (88) Room Air 07/25/19 19:45 110 18 140/76 (97) Room Air 07/25/19 19:40 36.6 113 18 116/72 (87) 99 Room Air 07/25/19 19:30 106 18 113/68 (83) Room Air 07/25/19 19:15 102 18 107/60 (76) Room Air 07/25/19 18:55 107 18 105/70 (82) Room Air 07/25/19 18:40 106 18 112/60 (77) Room Air 07/25/19 18:25 96 18 98/59 (72) Room Air 07/25/19 18:10 100 18 107/59 (75) 99 Room Air 07/25/19 17:55 93 18 120/73 (89) 99 Room Air 07/25/19 17:40 36.4 102 18 133/83 (100) 100 Room Air 07/25/19 17:25 104 18 121/78 (92) 99 Room Air 07/25/19 17:10 90 18 120/78 (92) 100 Room Air 07/25/19 16:55 85 18 121/69 (86) 100 Room Air 07/25/19 16:40 80 18 115/63 (80) 100 Room Air 07/25/19 16:25 88 18 117/64 (81) 100 Room Air 07/25/19 16:10 75 18 112/66 (81) 100 Room Air 07/25/19 15:55 72 18 113/58 (76) 98 Room Air 07/25/19 15:40 36.0 85 18 123/75 (91) 99 Room Air 07/25/19 15:25 84 18 114/68 (83) 99 Room Air 07/25/19 15:10 95 18 110/71 (84) 100 Room Air 07/25/19 14:55 85 18 110/68 (82) 99 Room Air 07/25/19 14:40 75 18 118/68 (85) 99 Room Air 07/25/19 14:25 36.0 84 18 118/73 (88) 98 Room Air 07/25/19 14:18 82 18 115/70 (85) 96 Room Air 07/25/19 14:13 84 18 122/74 (90) 99 Room Air 07/25/19 14:10 82 18 128/77 (94) 100 Room Air 07/25/19 14:08 86 18 121/71 (88) 100 Room Air 07/25/19 14:05 76 18 123/75 (91) 99 Room Air 07/25/19 14:02 35.9 67 18 104/56 (72) 99 Room Air 07/25/19 13:59 83 18 92/50 (64) 99 Room Air 07/25/19 13:56 86 18 104/56 (72) 98 Room Air 07/25/19 13:53 85 18 100/57 (71) 98 Room Air 07/25/19 13:50 84 18 115/57 (76) 99 Room Air 07/25/19 13:44 98 18 119/62 (81) 99 Room Air 07/25/19 13:39 97 18 137/75 (95) 100 Room Air 07/25/19 13:34 97 18 132/81 (98) 97 Room Air 07/25/19 13:29 85 18 129/80 (96) 98 Room Air 07/25/19 13:24 88 18 140/84 (102) 97 Room Air 07/25/19 13:19 99 18 141/85 (103) 96 Room Air 07/25/19 13:14 97 18 136/79 (98) 98 Room Air 07/25/19 13:09 95 18 119/69 (86) 98 Room Air 07/25/19 13:03 98 18 134/84 (101) 99 Room Air 07/25/19 13:00 97 18 135/89 (104) 100 Room Air 3/19/20 12:55 105 18 144/83 (103) 100 Room Air 07/25/19 12:40 74 18 131/77 (95) Room Air 07/25/19 12:10 80 18 126/80 (95) Room Air 07/25/19 11:40 36.4 90 18 122/77 (92) Room Air 07/25/19 10:40 84 18 119/77 (91) Room Air 07/25/19 10:10 36.3 92 18 98 Room Air I & O 07/26/19 07:00 Intake Total 3000 ml Output Total 0 ml Balance 3000 ml Vital signs are stable. Patient is afebrile Fundus is firm below the umbilicus and nontender. Extremities show no clubbing or cyanosis. There is no Homans sign. Assessment and plan day number 1 status post term spontaneous vaginal delivery. Patient is doing well and will have routine convalescence care July 27, 2019 Patient without complaints. She is ambulating, voiding, tolerating oral intake well has good pain control. Patient denies chest pain, denies shortness of breath, denies nausea vomiting, and denies headache. Vital Signs Date Time Temp Pulse Resp B/P (MAP) Pulse Ox O2 Delivery O2 Flow Rate FiO2 07/27/19 09:00 36.6 81 18 116/71 (86) 98 Room Air 07/27/19 02:32 36.6 87 18 117/72 (87) 100 Room Air 07/26/19 21:30 36.6 86 18 129/76 (93) 100 Room Air 07/26/19 14:05 36.6 98 18 107/56 (73) 100 Room Air Vital signs are stable. Patient is afebrile. The abdomen is benign. Fundus is firm below the umbilicus and nontender. Extremities show no clubbing cyanosis. There is no Homans sign. Assessment and plan day number 2 doing well. Plan for discharge home with follow-up in clinic Final Diagnosis 37 week spontaneous vaginal delivery DELIA CLAUDIO MD Jul 27, 2019 09:46
--- NOTE | 2019-07-27 13:00 | NUR ---
dismissal instructions given, verbalizes understanding. reviewed dismissal medications and follow up appointment. signature page signed, placed on chart.
--- NOTE | 2019-07-27 13:23 | NUR ---
triston called into [facility] pharmacy per pt's request.
--- NOTE | 2019-07-27 13:40 | NUR ---
pt ambulated to private vehicle with this RN, and s/o @ side. secured in rear facing car seat. pt stable with no sx's of distress noted.
== END 2019-07-27 13:40 | disposition home or self-care (01) | DRG 806 ==
LOC: LDRP 09:58 → WSo 09:58 → LDRP 10:00
PROVIDERS: ADMIT Obstetrics & Gynecology; ATTEND Obstetrics & Gynecology
PROC: 10E0XZZ Delivery of Products of Conception, External Approach (ICD-10-PCS; principal; 2019-07-26)
PROC: 0KQM0ZZ Repair Perineum Muscle, Open Approach (ICD-10-PCS; 2019-07-26)
DX: O24.419 Gestational diabetes mellitus in pregnancy, unspecified control (principal); O41.03X0 Oligohydramnios, third trimester, not applicable or unspecified; Z37.0 Single live birth; O70.1 Second degree perineal laceration during delivery; O66.0 Obstructed labor due to shoulder dystocia; Z3A.37 37 weeks gestation of pregnancy; Z88.2 Allergy status to sulfonamides
CPT/HCPCS: 36415; 82962; 85025; 86850; 86900; 86901